=== PATIENT | female | born 1990 | race Caucasian/White ===

== ENCOUNTER 2017-12-22 22:52 | Emergency (ER) | payer SELFPAY ==
[~2017-12-22] VITALS: Ht 162.6 cm; Wt 65.0 kg
[~2017-12-22 22:52] MED LIST: FLNCV PO; IBUP-1121 PO
[2017-12-22 23:04] VITALS: TEMP 36.9; Ht 162.6 cm; Wt 65.0 kg
[2017-12-22] MEDS ORDERED: IBUPROFEN 600 MG TAB PO STA (23:23)
[2017-12-22 23:31] VITALS: BP 102/60; PULSE 80; O2SAT 99
--- NOTE | 2017-12-22 23:36 | EMERGENCY ROOM VISIT NOTE ---
History First contact with patient: 23:10 Chief Complaint: HEAD PAIN Stated Complaint: SEVERE PAIN, LEFT SIDE OF HEAD, NAUSEA History of Present Illness The patient is a 27 year old female who presents to the Emergency Room with complaints of left-sided facial pain that has been intermittent for the past few days. Pain currently 2 out of 10. Patient states the pain will last sometimes a few minutes to a few hours. She has not seen a dentist in a while. Patient states palpation makes it worse nothing makes it better. Patient denies chest pain, dyspnea, fever, chills, facial swelling, dental pain, inner ear pain, neck stiffness, flulike illness, abdominal pain or any other medical complaints. Review of Systems An 10 system review of systems was completed with positives and pertinent negatives listed in the HPI. Past Medical/Surgical History [place] teeth extraction, asthma Social History Smoking Status: Current Every Day Smoker Alcohol Use: none Drug Use: marijuana Marital Status: in relationship Housing Status: lives with family Occupation Status: employed Current/Historical Medications Scheduled Ibuprofen (Motrin Susp), 600 MG PO Q4HR PRN Multivitamins (Flintstones Chewable *), 1 TAB PO BID Physical Exam Vital Signs Date Time Temp Pulse Resp B/P (MAP) Pulse Ox O2 Delivery O2 Flow Rate FiO2 12/22/17 23:04 36.9 84 18 100/64 98 Room Air Physical Exam VITALS: Vitals are noted on the nurse's note and reviewed by myself. Vital signs stable. GENERAL: Pleasant female, in no acute distress, nondiaphoretic, well-developed well-nourished. SKIN: The skin was without rashes, erythema, edema, or bruising. There is no tenting of the skin. Capillary reflex less than 2 seconds. HEAD: Normocephalic atraumatic. Face: Left TMJ tender to palpation easily reproducing symptoms. Patient can fully open and close jaw. Dental exam: No palpable abscess or signs of James angina. EARS: External auditory canals clear, tympanic membranes pearly lamb without erythema or effusion bilaterally. EYES: Pupils equal round and reactive to light and accommodation. Conjunctivae without injection, sclerae without icterus. Extraocular movements intact. NOSE: Patent, turbinates without inflammation or discharge. No sinus tenderness. MOUTH: Mucous membranes moist. Pharynx without erythema or exudate. Uvula midline. Airway patent. Tongue does not deviate. NECK: Supple without nuchal rigidity. No lymphadenopathy. No thyromegaly. Cervical spine is nontender. No JVD. HEART: Regular rate and rhythm without murmurs gallops or rubs. LUNGS: Clear to auscultation bilaterally without wheezes, rales or rhonchi. No retractions or accessory muscle use. ABDOMEN: Positive bowel sounds x 4. Normal tympanic percussion. Soft, nontender, without masses or organomegaly. Adan sign negative. No guarding or rebound tenderness. No CVA tenderness MUSCULOSKELETAL: No muscle atrophy, erythema, or edema noted. NEURO: Patient was alert and oriented to person place and time. Normal sensation to light and sharp touch. No focal neurological deficits. Medical Decision & Procedures Medications Administered Medications (Trade) Dose Ordered Sig/Martine Route Start Time Stop Time Status Last Admin Dose Admin Ibuprofen (Motrin Tab) 600 mg NOW STAT PO 12/22/17 23:23 12/22/17 23:24 DC 12/22/17 23:30 600 MG ED Course Prior records reviewed and summarized as above. Triage Nursing notes reviewed. Additional history obtained from boyfriend The patient's history was concerning for left-sided facial pain. Differential diagnosis: Etiologies such as TMJ, dental infection, parotitis, cellulitis, abscess, tic douloureux, as well as others were entertained.. Physical examination: The physical examination was consistent with TMJ ER treatment provided: Motrin On reassessment the patient felt better. Diagnostics interpreted by me: Deferred This appears to be TMJ. Patient was advised to take NSAIDs and avoid overuse of the area. She is advised to try ice packs. She is advised to wear a mouthguard at night for possible grinding of the teeth. She is advised to follow-up dentistry or family care doctor in a few days here in the ER sooner for severe pain, fevers, neck stiffness, worsening signs or symptoms or as needed. Patient had no signs of palpable abscess. No James's angina. No facial swelling. No airway compromise. By the evaluation outlined above emergent etiologies such as abscess, cellulitis as well as others were deemed relatively unlikely. The pt informed about the findings as listed above. All questions were answered and pleased with the treatment. Return instructions were outlined and the patient was discharged in stable condition. Referral: The patient was referred back to dentist and/or primary care physician for follow-up in 2 to 3 days for a recheck of the current condition. The chart was completed utilizing [employer] Speech voice recognition software. Grammatical errors, random word insertions, pronoun errors, and incomplete sentences are an occassional consequence of this system due to software limitations, ambient noise, and hardware issues. Any formal questions or concerns about the content, text, or information contained within the body of this dictation should be directly addressed to the physician assistant attorney general for clarification. Medical Decision As above Medication Reconcilliation Current Medication List: was personally reviewed by me Blood Pressure Screening Patient's blood pressure: Normal blood pressure Impression Primary Impression: TMJ syndrome Departure Information Dispostion Home / Self-Care Condition GOOD Referrals Desean Landin M.D. (PCP) Forms WORK / SCHOOL INSTRUCTIONS, HOME CARE DOCUMENTATION FORM, IMPORTANT VISIT INFORMATION Patient Instructions TMD Pain Relief Methods, My [facility], ED TMJ Syndrome Additional Instructions Recommend wearing a mouthguard at night and avoid chewing gum. Ibuprofen(Motrin, Advil) may be used for fever or pain. Use 600mg every six hours as needed. Take with food. Avoid using more than 2400mg in a 24 hour period. Do not use 2400mg per day for more than three consecutive days without physician direction. Prolonged inappropriate use can lead to stomach upset or ulcers. (AND/OR) Acetaminophen(Tylenol) may be used for fever or pain. Use 1000mg every six hours as needed. Avoid using more than 3000mg in a 24 hour period. Rest and drink plenty of fluids as tolerated. Continue current medications. Avoid activities that worsens your pain. Resume normal activities once your symptoms resolve. Return to the ER immediately for worsening or persistent facial pain, fevers, facial swelling, neck stiffness, worsening of your condition, or as needed. Follow up with dentistry in 2-3 days for a recheck of your current condition.
== END 2017-12-22 23:32 | disposition home or self-care (01) ==
LOC: C.EDB 22:54
DX: M26.622 Arthralgia of left temporomandibular joint (principal); J45.909 Unspecified asthma, uncomplicated; F17.210 Nicotine dependence, cigarettes, uncomplicated; F12.90 Cannabis use, unspecified, uncomplicated